=== PATIENT | male | born 1960 | race Caucasian/White ===

== ENCOUNTER 2018-04-05 07:19 | Outpatient (CLI) | payer OTHER | END 2018-04-05 17:31 | disposition home or self-care (01) | LOC: NUCLEAR 07:19 | DX: R06.02 Shortness of breath (principal); E78.2 Mixed hyperlipidemia; I20.8 Other forms of angina pectoris; I11.9 Hypertensive heart disease without heart failure; R06.09 Other forms of dyspnea | CPT/HCPCS: 93306; 78452; 93017; A9500 ==

== ENCOUNTER 2018-11-26 07:08 | Outpatient (CLI) | payer OTHER | END 2018-11-26 08:38 | disposition home or self-care (01) | LOC: TOM 07:08 | DX: J45.998 Other asthma (principal); C64.2 Malignant neoplasm of left kidney, except renal pelvis ==